=== PATIENT | female | born 1995 | race Caucasian/White ===

== ENCOUNTER 2017-01-26 20:25 | Outpatient (CLI) | payer BC ==
[~2017-01-26] VITALS: Ht 167.6 cm; Wt 66.1 kg
--- NOTE | 2017-01-26 07:30 | PN ---
Date/Time of Note Date/Time of Note DATE: 01/26/17 TIME: 07:24 OB Subjective Subjective Subjective 21 Year-old G1 with SIUP at 33 3/7 wks observe at antepartum for pre term contractions. She has been receiving her care with Dr. Rojas. She states good movement. She denies nausea, vomiting, shortness of breath, chest pain, headache, visual changes, vaginal bleeding or LOF. OB Objective Objective Objective General: Patient appears well, alert and oriented, NAD, appropriate mood and affect ABD: gravid, soft, non-tender. Back: No CVA tenderness (B/L) LE: No clubbing, cyanosis, edema, thigh or calf tenderness bilaterally FHT: 140 bpm , moderate variability with acceleration, no deceleration-category I Contractions: None SVE: closed/30/-3/cephalic/intact membrane OB Assessment/Plan Other plan: 21 Year-old G1 with SIUP at 33 3/7 with contractions. She has received IVF, terbutalin x2. Currently has no further ucs. BMZ x1 given. She will back to triage 2nd dose of steroid tomorrow. US operformed with CL of 3.1 cm. - FHR: No sign of metabolic acidosis- Category I - Continuous EFM, toco - Contractions: None. - Symptoms and sign of labor, preeclampsia, kick count discussed with patient, she voiced understanding. All of her questions answered. - Patient was discharged home in stable condition with the appropriate discharge instructions provided. I would like patient to have close follow-up with her primary physician or outpatient clinic in 1-2 days or return to the ER for worsening symptoms or any other urgent concerns. FOREST DURHAM Jan 26, 2017 07:30
[~2017-01-26 20:25] MED LIST: FOLI-49 PO; PRENAT PO
[2017-01-26 20:40] VITALS: Ht 167.6 cm; Wt 66.1 kg
[2017-01-26 20:41] VITALS: BP 101/57; PULSE 86
[2017-01-26] MEDS ORDERED: BETAMET NA PHOS/AC(6 MG/ML) 5ML INJ IM ONE (21:00)
--- NOTE | 2017-01-26 22:42 | PN ---
Triage Information Date/Time Reason for visit: Betamethasone #2 Weeks of Gestation 33+4 /Para 2/0 Diabetes: none Hypertention: none Additional information Pt was seen yesterday and evaluated for contractions without evidence of PTL. Pt received first dose of BMZ last night and returns for second dose of BMZ today. Pt states contractions have improved significantly from yesterday. Reports normal FM, denies LOF or VB Objective Vital Signs Date Time Temp Pulse Resp B/P Pulse Ox O2 Delivery O2 Flow Rate FiO2 01/26/17 20:41 98.5 86 101/57 Heart Rate: 130's Heart Rate Comments mod pedro, +accels, no decels. Difficulty obtaining continuous tracing x20 min, however able to get 16 min stretch x1 and multiple other segments all of which are reactive Contractions: None Disposition: Discharge Assessment/Plan Pt appropriate for d/c home. Will f/up as scheduled with Dr. Rojas on 02/01 Strict return precautions reviewed. PTL, PPROM, FKC precautions discussed LEILA HAYES MD Jan 26, 2017 22:42
== END 2017-01-26 22:46 | disposition home or self-care (01) ==
LOC: OBT 20:25 → L-D 20:26 → OBT 22:46
PROVIDERS: ATTEND Obstetrics & Gynecology
DX: O62.9 Abnormality of forces of labor, unspecified (principal); Z3A.33 33 weeks gestation of pregnancy
CPT/HCPCS: 96372; J0702; Z7500; G0463

== ENCOUNTER 2017-02-15 | Outpatient (CLI) | payer BC ==
[~2017-02-15] VITALS: Ht 167.6 cm; Wt 67.8 kg
[2017-02-15 00:18] VITALS: Ht 167.6 cm; Wt 67.8 kg
[2017-02-15 00:19] VITALS: BP 118/67; PULSE 74; RESP 18
[2017-02-15 02:08] LABS: ADD UMIC YES; UR ASCORBIC ACID NEGATIVE (NEGATIVE); UR BACTERIA MODERATE /HPF (NONE SEEN); UR BILIRUBIN (Dip) NEGATIVE (NEGATIVE); UR BLOOD (Dip) NEGATIVE (NEGATIVE); UR CLARITY CLEAR (CLEAR); UR COLOR STRAW (YELLOW); UR GLUCOSE (Dip) NEGATIVE (NEGATIVE); UR KETONES (Dip) NEGATIVE (NEGATIVE); UR LEUKOCYTE ESTERASE (Dip) TRACE Leu/ul (NEGATIVE); UR NITRITE (Dip) NEGATIVE (NEGATIVE); UR RBC 0 /HPF (0-5); UR SPECIFIC GRAVITY (Dip) 1.006 (1.003-1.030); UR TOTAL PROTEIN (Dip) NEGATIVE (NEGATIVE); UR UROBILINOGEN (Dip) NEGATIVE (NEGATIVE)
[2017-02-15] MEDS ORDERED: LACTATED RINGER'S 1,000 ML IV SCH (02:45)
--- NOTE | 2017-02-15 05:30 | TRIAGE ---
OB Triage Datetime Report Generated by CPN: 02/15/2017 05:30 Datetime: 02/15/2017 02:42 Stage of : OB Triage Datetime: 02/15/2017 01:00 Stage of : OB Triage Maternal Assessment Level of Consciousness: Fully Conscious DTR's/Clonus: DTRs 2+; No Clonus Headache: Denies Breath Sounds, Left: Clear and Equal Breath Sounds, Right: Clear and Equal Nausea/Vomiting: Denies RUQ Epigastric Pain: Denies Labor Evaluation Frequency: UTERNIE IRRITABILITY NOTED Monitor Mode: External Heart Rate FHR Baseline Rate: 145 Monitor Mode: External US Variability: Moderate 6-25 bpm Accelerations: 15X15 Decelerations: None Pain Assessment Pain Scale: 9 Pain Presence: Intermittent Pain Type: Contraction Pain Location: Abdomen Pain Goal: 3 Pain Assessment Comments: PT C/O VAGINAL PRESSURE. Datetime: 02/15/2017 00:52 Stage of : OB Triage Datetime: 02/15/2017 00:50 Stage of : OB Triage Datetime: 02/15/2017 00:42 Stage of : OB Triage Datetime: 02/15/2017 00:40 Stage of : OB Triage Datetime: 02/15/2017 00:20 Stage of : OB Triage Vaginal Exam Dilatation (cms): 0.0 Effacement (%): 50 Station: -3 Exam By: BAUTISTAANISAE Datetime: 02/15/2017 00:14 Stage of : OB Triage Maternal Assessment Level of Consciousness: Fully Conscious DTR's/Clonus: DTRs 2+; No Clonus Headache: Denies Blurred Vision: No Respiratory Effort: Unlabored; Regular Rhythm; Equal Expansion Breath Sounds, Left: Clear and Equal Breath Sounds, Right: Clear and Equal Nausea/Vomiting: Denies RUQ Epigastric Pain: Denies Lower Extremities Edema: None Upper Extremities Edema: None Facial Edema: None Temperature Route: Oral Fall Risk Assessment History of Falling: (0) No Secondary Diagnosis: (0) No Ambulatory Aid: (0) Bedrest/Nurse Assist IV Therapy: (0) No Gait: (0) Normal/Bedrest/Immobile Mental Status: (0) Oriented to Own Ability Fall Score: 0 Fall Risk Score Definition: No Risk: No action required Labor Evaluation Frequency: IRREGULAR Monitor Mode: External Duration (sec)2399: 60 Heart Rate FHR Baseline Rate: 145 Monitor Mode: External US Variability: Moderate 6-25 bpm Accelerations: 15X15 Decelerations: None Category: Category I Pain Assessment Pain Scale: 9 Pain Presence: Intermittent Pain Type: Contraction Pain Location: Abdomen Pain Goal: 3 Datetime: 02/15/2017 00:13 Stage of : OB Triage Datetime: 02/15/2017 00:12 Time of Arrival: 02/15/2017 00:01 EGA: 36.3 Arrived By: Wheelchair Arrived From: Home Chief Complaint: PT C/O ABDOMEN PAIN AND VAGINAL PRESSURE Movement: Present Contractions: Irregular Time Contractions Began: 02/14/2017 21:00 Rupture of Membranes: Denies Vaginal Bleeding: None Vaginal Discharge: Denies Recent Sexual Intercouse: Denies Abdominal Trauma: Not Applicable Patient Complaints: Contractions Initial Plan: TOCO AND EFM APPLY, BRITTNEE AND NOTIFY MD. Datetime: 01/26/2017 22:42 Labor Evaluation Frequency: IRREGULAR Monitor Mode: External Duration (sec)2399: 60-100 Quality: Mild Pattern: Normal: <= 5 Contractions in 10 Minutes Resting Tone [place]: Relaxed Heart Rate FHR Baseline Rate: 145 Monitor Mode: External US FHR Baseline Changes: No Baseline Change Variability: Moderate 6-25 bpm Accelerations: 15X15 Decelerations: None Category: Category I Pain Presence: None/Denies Pain Assessment Comments: 0 Datetime: 01/26/2017 21:24 Stage of : OB Triage Datetime: 01/26/2017 20:38 Stage of : OB Triage Assessment Type: Triage Maternal Assessment Level of Consciousness: Fully Conscious DTR's/Clonus: DTRs 2+; No Clonus Headache: Denies Blurred Vision: No Respiratory Effort: Unlabored; Regular Rhythm; Equal Expansion Breath Sounds, Left: Clear and Equal Breath Sounds, Right: Clear and Equal Nausea/Vomiting: Denies RUQ Epigastric Pain: Denies Facial Edema: None Temperature Route: Axillary Fall Risk Assessment History of Falling: (0) No Secondary Diagnosis: (0) No Ambulatory Aid: (0) Bedrest/Nurse Assist IV Therapy: (0) No Gait: (0) Normal/Bedrest/Immobile Mental Status: (0) Oriented to Own Ability Fall Score: 0 Fall Risk Score Definition: No Risk: No action required Labor Evaluation Frequency: 0 Monitor Mode: External Resting Tone [place]: Relaxed Heart Rate FHR Baseline Rate: 145 Monitor Mode: External US Variability: Moderate 6-25 bpm Accelerations: 10X10 Decelerations: None Category: Category I Pain Assessment Pain Scale: 0 Pain Presence: None/Denies Pain Type: N/A Pain Goal: 3 Pain Relief Measures: Comfort Measures Datetime: 01/26/2017 20:37 Time of Arrival: 01/26/2017 20:23 EGA: 33.4 Arrived By: Ambulatory Arrived From: Home Chief Complaint: RETURN FOR BETAMETHASONE INJECTION#2 Movement: Present Contractions: Denies/Absent Rupture of Membranes: Denies Vaginal Bleeding: None Vaginal Discharge: Denies Recent Sexual Intercouse: Denies Abdominal Trauma: Not Applicable Initial Plan: MONITOR, BETAMETHASONE #2 Datetime: 01/25/2017 17:34 EGA: 33.3
--- NOTE | 2017-02-15 06:31 | PN ---
Triage Information Date/Time 02/15/1709/28/622 Reason for visit: Abd/pelvic pain Weeks of Gestation 36w3d /Para A1(sab) Diabetes: none Hypertention: none Additional information 01/29/17 here for PTL X2 BMZ VE same as today Objective Vital Signs Date Time Temp Pulse Resp B/P Pulse Ox O2 Delivery O2 Flow Rate FiO2 02/15/17 00:19 98.0 74 18 118/67 Room Air Heart Rate: 130's Contractions: 6-10 Minutes Apart Exam VE closed /50%/-3 Results/Medications Results 24 hrs Laboratory Tests Test 02/15/17 01:10 Urine Color STRAW Urine Clarity CLEAR Urine pH 7.0 Urine Specific [place] 1.006 Urine Ketones NEGATIVE Urine Nitrite NEGATIVE Urine Bilirubin NEGATIVE Urine Urobilinogen NEGATIVE Urine Leukocyte Esterase TRACE A Urine Microscopic RBC 0 Urine Microscopic WBC 0 Urine Bacteria MODERATE Urine Hemoglobin NEGATIVE Urine Glucose NEGATIVE Urine Total Protein NEGATIVE Disposition: Discharge Assessment/Plan A IUP 36w3d S/P bmz2 NIL P discharge home with routine labor instructions KAY QUINTERO MD Feb 15, 2017 06:30
== END 2017-02-15 05:24 | disposition home or self-care (01) ==
LOC: OBT → L-D → OBT 05:24
PROVIDERS: ATTEND Obstetrics & Gynecology
DX: O26.893 Other specified pregnancy related conditions, third trimester (principal); Z3A.36 36 weeks gestation of pregnancy; R10.2 Pelvic and perineal pain
CPT/HCPCS: 36415; 81001; 96360; J7120; Z7500; G0463

== ENCOUNTER 2017-03-03 13:58 | Outpatient (CLI) | payer BC ==
[~2017-03-03] VITALS: Ht 167.6 cm; Wt 67.5 kg
[2017-03-03] MEDS ORDERED: CALC600T24 PO (14:16)
[2017-03-03 14:17] VITALS: BP 107/55; PULSE 18; RESP 18; Ht 167.6 cm; Wt 67.5 kg
[2017-03-03] MEDS ORDERED: ACETAMINOPHEN 500 MG TAB PO STA (15:04)
[2017-03-03 15:19] LABS: ADD UMIC YES; UR ASCORBIC ACID NEGATIVE (NEGATIVE); UR BACTERIA FEW /HPF (NONE SEEN); UR BILIRUBIN (Dip) NEGATIVE (NEGATIVE); UR BLOOD (Dip) 1+ mg/dL (NEGATIVE); UR CLARITY CLEAR (CLEAR); UR COLOR YELLOW (YELLOW); UR GLUCOSE (Dip) NEGATIVE (NEGATIVE); UR KETONES (Dip) TRACE mg/dL (NEGATIVE); UR LEUKOCYTE ESTERASE (Dip) NEGATIVE Leu/ul (NEGATIVE); UR MUCUS FEW /HPF (NONE SEEN); UR NITRITE (Dip) NEGATIVE (NEGATIVE); UR RBC 1 /HPF (0-5); UR SPECIFIC GRAVITY (Dip) 1.013 (1.003-1.030); UR TOTAL PROTEIN (Dip) NEGATIVE (NEGATIVE); UR UROBILINOGEN (Dip) NEGATIVE (NEGATIVE)
--- NOTE | 2017-03-03 15:53 | TRIAGE ---
OB Triage Datetime Report Generated by CPN: 03/03/2017 15:53 Datetime: 03/03/2017 15:30 Stage of : OB Triage Maternal Assessment Level of Consciousness: Fully Conscious Labor Evaluation Frequency: NONE Monitor Mode: External Resting Tone [place]: Relaxed Heart Rate FHR Baseline Rate: 135 Monitor Mode: External US Variability: Moderate 6-25 bpm Accelerations: 15X15 Decelerations: None Pain Assessment Pain Scale: 3 Pain Presence: Constant Pain Type: Pressure Pain Location: Perineum Pain Goal: 6 Pain Relief Measures: Comfort Measures Membrane Status: Intact Vaginal Bleeding: None Datetime: 03/03/2017 15:00 Stage of : OB Triage Maternal Assessment Level of Consciousness: Fully Conscious Labor Evaluation Frequency: 1UC/HR Monitor Mode: External Duration (sec)2399: 100 Quality: Mild Resting Tone [place]: Relaxed Heart Rate FHR Baseline Rate: 150 Monitor Mode: External US Variability: Moderate 6-25 bpm Accelerations: 15X15 Decelerations: None Category: Category I Pain Assessment Pain Scale: 3 Pain Presence: Constant Pain Type: Pressure Pain Location: Perineum Pain Goal: 6 Pain Relief Measures: Comfort Measures Membrane Status: Intact Vaginal Bleeding: None Datetime: 03/03/2017 14:50 Vaginal Exam Dilatation (cms): 0.0 Station: -3 Exam By: DAVIDJose Carlos Vaginal Bleeding: None Cervix, Position: Posterior Datetime: 03/03/2017 14:14 Assessment Type: Triage Maternal Assessment Level of Consciousness: Fully Conscious DTR's/Clonus: DTRs 2+; No Clonus Headache: Denies Blurred Vision: No Respiratory Effort: Unlabored; Regular Rhythm; Equal Expansion Breath Sounds, Left: Clear and Equal Breath Sounds, Right: Clear and Equal Nausea/Vomiting: Denies RUQ Epigastric Pain: Denies Lower Extremities Edema: None Degree: None Upper Extremities Edema: None Degree: None Facial Edema: None Fall Risk Assessment History of Falling: (0) No Secondary Diagnosis: (0) No Ambulatory Aid: (0) Bedrest/Nurse Assist IV Therapy: (0) No Gait: (0) Normal/Bedrest/Immobile Mental Status: (0) Oriented to Own Ability Fall Score: 0 Fall Risk Score Definition: No Risk: No action required Datetime: 03/03/2017 14:13 Time of Arrival: 03/03/2017 13:50 EGA: 38.5 Arrived By: Ambulatory Arrived From: Home Chief Complaint: PT CAME IN C/O VAG. PRESSURE, UC'S Movement: Present Contractions: Irregular Rupture of Membranes: Denies Vaginal Bleeding: None Vaginal Discharge: Present Recent Sexual Intercouse: Denies Abdominal Trauma: Not Applicable Patient Complaints: Contractions; Cramping; Back Pain Time Provider Notified: 03/03/2017 14:54 Provider Notified: LYLE Initial Plan: EFM/SVE/TYLENOL/UA Datetime: 03/03/2017 14:09 Monitor Mode: External Monitor Mode: External US Datetime: 02/15/2017 04:43 Stage of : OB Triage Comments: MONITORS OFF, PT UP FOR DRESS UP Datetime: 02/15/2017 04:42 Stage of : OB Triage Datetime: 02/15/2017 04:00 Stage of : OB Triage Maternal Assessment Level of Consciousness: Fully Conscious Monitor Mode: External Duration (sec)2399: UTERINE IRRITABILITY NOTED Heart Rate FHR Baseline Rate: 155 Monitor Mode: External US Variability: Moderate 6-25 bpm Accelerations: 15X15 Decelerations: None Category: Category I Pain Assessment Pain Scale: 5 Pain Presence: Intermittent Pain Type: Contraction Pain Location: Abdomen Pain Goal: 3 Datetime: 02/15/2017 03:00 Stage of : OB Triage Maternal Assessment Level of Consciousness: Fully Conscious Labor Evaluation Frequency: X2 Monitor Mode: External Duration (sec)2399: 60-90 Quality: Mild Heart Rate FHR Baseline Rate: 160 Monitor Mode: External US Variability: Moderate 6-25 bpm Accelerations: 15X15 Decelerations: None Category: Category I Pain Assessment Pain Scale: 7 Pain Presence: Intermittent Pain Type: Contraction Pain Location: Abdomen Pain Goal: 3 Datetime: 02/15/2017 02:55 Stage of : OB Triage Datetime: 02/15/2017 02:00 Stage of : OB Triage Maternal Assessment Level of Consciousness: Fully Conscious Labor Evaluation Frequency: X3 Monitor Mode: External Duration (sec)2399: 50-60 Quality: Mild Heart Rate FHR Baseline Rate: 165 Monitor Mode: External US Variability: Moderate 6-25 bpm Accelerations: 15X15 Decelerations: None Category: Category II Pain Assessment Pain Scale: 7 Pain Presence: Intermittent Pain Type: Contraction Pain Location: Abdomen Pain Goal: 3 Datetime: 02/15/2017 00:14 Fall Score: 0 Fall Risk Score Definition: No Risk: No action required Datetime: 02/15/2017 00:12 EGA: 36.3 Datetime: 01/26/2017 20:38 Fall Score: 0 Fall Risk Score Definition: No Risk: No action required Datetime: 01/26/2017 20:37 EGA: 33.4 Datetime: 01/25/2017 17:34 EGA: 33.3
--- NOTE | 2017-03-03 16:03 | PN ---
Triage Information Date/Time 03/03/2017 Reason for visit: Uterine contractions Weeks of Gestation 38 weeks and 5 days /Para Diabetes: none Hypertention: none Additional information 21 years old with IUP at 38 weeks and 5 days with PNC with Dr. Rojas presented with complaint of uterine contraction since yesterday. Denies any Leaking of fluid or vaginal bleeding or decreased movement, She had been observed examined and there was no cervical change after couple hours observation in triage. The heart tracing category 1 there was no contraction on the monitor. Exam shows no cervical change. Cervix is closed and long. Objective Vital Signs Date Time Temp Pulse Resp B/P Pulse Ox O2 Delivery O2 Flow Rate FiO2 03/03/17 14:17 99.1 18 18 107/55 90 Room Air Heart Rate: 130's Contractions: None Exam SVE: 0/long and High FHT: cat 1 Abdomen: Gravid, fundal height consistent with gestational age. No tenderness, no rebound tenderness, no guarding, no rigidity, Results/Medications Results 24 hrs Laboratory Tests Test 03/03/17 14:10 Urine Color YELLOW Urine Clarity CLEAR Urine pH 6.0 Urine Specific [place] 1.013 Urine Ketones TRACE A Urine Nitrite NEGATIVE Urine Bilirubin NEGATIVE Urine Urobilinogen NEGATIVE Urine Leukocyte Esterase NEGATIVE Urine Microscopic RBC 1 Urine Microscopic WBC 1 Urine Bacteria FEW A Urine Mucus FEW A Urine Hemoglobin 1+ H Urine Glucose NEGATIVE Urine Total Protein NEGATIVE Disposition: Discharge Assessment/Plan IUP at 38 weeks and 5 days not in laborFetal heart tracing category 1. Patient will be discharged home. Strict labor precautions and kick counts and follow-up with primary OB within 24-48 hours discussed with the patient. Return to triage if she has any decreased movement recurrence of contractions or feeling more pressure and cramps or any other concern. Of note that UA showed some ketones but was negative for any UTI. DREAD KAUR MD Mar 03, 2017 16:03
== END 2017-03-03 15:55 | disposition home or self-care (01) ==
LOC: OBT 13:58 → L-D 13:58 → OBT 15:55
PROVIDERS: ATTEND Obstetrics & Gynecology
DX: O62.9 Abnormality of forces of labor, unspecified (principal); Z3A.38 38 weeks gestation of pregnancy
CPT/HCPCS: 81001; Z7500; Z7610; G0463